=== PATIENT | female | born 1955 | race Caucasian/White ===

== ENCOUNTER 2016-06-24 13:25 | Observation (INO) | payer SELFPAY ==
[2016-06-24] MEDS ORDERED: LR 1,000 ML IV ONE (15:31)
[2016-06-24] MEDS ORDERED: ERTAPENEM 1 GM in NS 100 ML IV ONE (15:40)
[2016-06-24] MEDS ORDERED: LIDOCAINE 1% 30 ML SDV ONE (16:28)
[2016-06-24] MEDS ORDERED: BUPIVACAINE 0.5% 30 ML SDV ONE (16:28)
[2016-06-24] MEDS ORDERED: PROPOFOL/EMULSION 500 MG/50 ML BOTTLE IV ONE ×2 (16:31→18:03)
[2016-06-24] MEDS ORDERED: fentaNYL 100 MCG/2 ML INJ ONE ×3 (16:32→19:00)
[2016-06-24] MEDS ORDERED: MIDAZOLAM 2 MG/2 ML VIAL ONE (16:35)
[2016-06-24] MEDS ORDERED: ACETAMINOPHEN 325 MG TAB PO PRN (19:18)
--- NOTE | 2016-06-24 19:23 | POSTOPPROG ---
Post Op Note Date of Operation: 06/24/16 Surgeon: Ky Jordan Coil Repair Technician: Aram Stevens Anesthesia: GET(General Endotracheal) Pre-op Diagnosis: Colon mass Post-op Diagnosis: sigmoid mesenteric metastatic mass Procedure: diagnositic laparoscopy, biopsy mesenteric mass Findings: unyielding mass in pelvis below promentory Inf/Abcess present in the surg proc area at time of surgery?: No EBL: Minimal Specimen(s): multiple bx to permanent path
[2016-06-24] MEDS: OXYCODONE/APAP 5/325 TAB PO PRN (22:32)
[2016-06-25 04:52] VITALS: RESP 16
[2016-06-25 05:32] LABS: % IMMATURE GRANULYOCYTES 0.5 % (0.0-1.1); ABSOLUTE IMMATURE GRANULOCYTES 0.06 10^3/uL (0.00-0.10); ADD DIFF? NO; ADD MORPH? NO; ADD SCAN? NO; ATYPICAL LYMPHOCYTE FLAG 0 (0-99); FRAGMENT RBC FLAG 0 (0-99); HEMATOCRIT 37.2 % (38.0-47.0); HEMOGLOBIN 12.5 g/dL (12.6-16.3); LEFT SHIFT FLG 0 (0-99); LIPEMIA HEMOLYSIS FLAG 80 (0-99); MEAN CELL HEMOGLOBIN 28.5 pg (27.9-34.1); MEAN CELL HEMOGLOBIN CONCENTR. 33.6 g/dL (32.4-36.7); MEAN CELL VOLUME 84.9 fL (81.5-99.8); MEAN PLATELET VOLUME 9.6 fL (8.7-11.7); PLATELET CLUMPS FLAG 10 (0-99); PLATELET COUNT 359 10^3/uL (150-400); RED BLOOD CELL COUNT 4.38 10^6/uL (4.18-5.33); RED CELL DISTRIBUTION WIDTH 12.9 % (11.5-15.2)
[2016-06-25 05:42] LABS: ANION GAP 10 mEq/L (8-16); CALCIUM 9.4 mg/dL (8.5-10.4); CARBON DIOXIDE 24 mEq/l (22-31); CHLORIDE 106 mEq/L (97-110); CREATININE 0.6 mg/dL (0.6-1.0); GLOMERULAR FILTRATION RATE > 60; GLUCOSE 148 mg/dL (70-100); POTASSIUM 4.5 mEq/L (3.5-5.2); SODIUM 140 mEq/L (134-144)
--- NOTE | 2016-06-25 07:20 | GOP ---
[f rep st] OPERATIVE REPORT DATE OF OPERATION: SURGEON: Ky Jordan MD LEAD SECURITY OFFICER: Dr. Aram Stevens ANESTHESIA: General endotracheal anesthesia. PREOPERATIVE DIAGNOSIS: Mesenteric mass of the sigmoid colon, exophytic to colon. 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 PROCEDURE PERFORMED: Diagnostic laparoscopy, biopsy of mesenteric mass. FINDINGS: Sigmoid mesenteric mass which is stuck to the sacral promontory and is unyielding. SPECIMENS: Multiple biopsies to frozen and then permanent pathology. ESTIMATED BLOOD LOSS: 50. INDICATIONS: This is a 60-year-old woman who presents with a sigmoid mass and back pain. DESCRIPTION OF PROCEDURE: The patient was brought to the operating room. After induction of endotr acheal anesthesia in the supine position, Grijalva catheter was placed. Time-out procedure was then pe rformed according to the institutional standards. Abdomen was prepped with chlorhexidine, draped st erilely. The abdomen was approached through an open supraumbilical trocar placement, and the abdome n was insufflated to 15 TOR with carbon dioxide. Working trocars were placed into the right flank a nd left lower quadrant under direct visualization. The abdomen was explored. The liver looks okay without any lesions. There were no mesenteric deposits. The sigmoid colon is identified, and there is a mesenteric mass which is more stuck into the pelvis on the right side. Multiple biopsies of a mcleod, white, hard appearing mass, as well as getting into the mesentery on the right side to get mu ltiple biopsies on that side as well. All of them showed mesenteric metastatic lesion with possible squamous primary. At this point, since the patient's lesion was not encompassing the colon or caus ing obstruction, and it was likely growing into the sacral plexus, it was decided to stop the proced ure at this point. All trocars were removed. Hemostasis was assured to be good before exiting the abdomen. The patient had 0 Vicryl used to close the 10 mm port in the right flank. All other ports were all reapproximated at the skin level using 4-0 Monocryl. Steri-Strips were applied. The sherlyn ent was awakened, extubated, and taken to the recovery room in stable condition, no immediate compli cations. COMPLICATIONS: None. FLUIDS: 1 L crystalloid. /[id number]/MODL
[2016-06-25 07:39] VITALS: BP 100/58; PULSE 79; O2SAT 91
[2016-06-25] MEDS: OXYCODONE/APAP 5/325 TAB PO PRN ×2 (08:44→14:08)
--- NOTE | 2016-06-25 09:22 | SOAPPROG ---
SOAP Progress Note Assessment/Plan: Assessment: POD 1 s/p diagnostic laparoscopy and biopsy of mesenteric mass. Patient ambulating around room. Having discomfort this morning- getting ready to take Percocet. No new issues overnight. VS 100/50, HR 70s, 91% RA, afeb. Pathology pending. A&O x 3, incision clean, dry, intact. abd soft, + tender. WBC 12.4, H/ H 12.5/ 37.2, Na 140, K 4.5, BUN 9, Creat 0.6. Plan: d/c home today. Dr. Jordan to come speak with patient and before discharge today. Patient with questions regarding next steps. Plan: 06/25/16 09:19 Objective: Vital Signs Temp Pulse Resp BP Pulse Ox 36.8 C 79 16 100/58 L 91 L 06/25/16 04:46 06/25/16 07:37 06/25/16 04:46 06/25/16 07:37 06/25/16 07:37 Laboratory Results 06/25/16 04:39 06/25/16 04:39 06/24/16 06/25/16 06/26/16 05:59 05:59 05:59 Intake Total 2100 Output Total 1400 Balance 700 ICD10 Worksheet Patient Problems: Problems Problem Status Onset Mesenteric mass Acute - ICD10 Problem Qualifiers (1) Mesenteric mass
[2016-06-25 13:56] VITALS: TEMP 98.1
== END 2016-06-25 14:03 | disposition home or self-care (01) ==
LOC: F3N 14:38 → INTOOBSV 14:38 → F3E 18:30
PROVIDERS: ADMIT Surgery; ATTEND Surgery
PROC: 0DBV4ZX Excision of Mesentery, Percutaneous Endoscopic Approach, Diagnostic (ICD-10-PCS; principal; 2016-06-24 16:15)
DX: C18.7 Malignant neoplasm of sigmoid colon (principal)
CPT/HCPCS: G0378; J1335; J2250; J2704; J3010

== ENCOUNTER → 2016-10-21 | Outpatient (CLI) | payer OTHER ==
[~2016-10-21] MED LIST: GADOBUTROL 10 ML VIAL IVP ONE
== END ==
LOC: FIMAGING 19:28
PROVIDERS: ATTEND Internal Medicine Hematology & Oncology
DX: Z08 Encounter for follow-up examination after completed treatment for malignant neoplasm (principal); Z85.41 Personal history of malignant neoplasm of cervix uteri
CPT/HCPCS: A9585